=== PATIENT | female | born 2000 ===

== ENCOUNTER 2018-06-12 01:01 | Emergency (ER) | payer SELFPAY ==
[2018-06-12 01:30] VITALS: RESP 16; TEMP 97.7; O2SAT 100
[2018-06-12] MEDS ORDERED: DiphenhydrAMINE 50 mg/ml Inj ONE (02:15)
[2018-06-12] MEDS ORDERED: DiphenhydrAMINE 50 mg/ml Inj IVP STA (04:31)
--- NOTE | 2018-06-12 04:33 | ED PDOC ---
HPI: Allergic Reaction Time Seen by Provider: 06/12/18 02:05 Chief Complaint (Nursing): Allergic Reaction Chief Complaint (Provider): Allergic Reaction History Per: Patient, [employer] (belizean int: [id number]) History/Exam Limitations: no limitations Current Symptoms Are (Timing): Better Additional Complaint(s): Magalis Chaney is a 18 year old female with no past medical history, who presents to the emergency department complaining of numbness to the right arm, body, and face, associated with difficulty breathing, rash and inability to swallow. She states she fell asleep around 11pm and woke up with these symptoms. Patient further states that this episode feels like an allergic reaction she has to seafood, however patient denies eating any prior. PMD: No provider Past Medical History Reviewed: Historical Data, Nursing Documentation, Vital Signs Vital Signs: Last Vital Signs Temp 97.7 F 06/12/18 01:28 Pulse 77 06/12/18 01:28 Resp 16 06/12/18 01:28 BP 122/79 06/12/18 01:28 Pulse Ox 100 06/12/18 01:28 - Medical History PMH: No Chronic Diseases - Surgical History Surgical History: No Surg Hx - Family History Family History: States: Unknown Family Hx - Social History Current smoker - smoking cessation education provided: No Alcohol: None Drugs: Denies - Home Medications Home Medications: Ambulatory Orders Medication Instructions Recorded Epinephrine HCl [Epipen 0.3 mg MR PRN PRN #1 06/12/18 Auto-Injector] predniSONE [Prednisone] 40 mg PO DAILY #8 tab 06/12/18 - Allergies Allergies/Adverse Reactions: Allergies Allergy/AdvReac Type Severity Reaction Status Date / Time shrimp Allergy RASH Verified 06/12/18 01:27 Review of Systems ROS Statement: Except As Marked, All Systems Reviewed And Found Negative Respiratory: Positive for: Other (dyspnea) Neurological: Positive for: Numbness Physical Exam - Reviewed Nursing Documentation Reviewed: Yes Vital Signs Reviewed: Yes - Physical Exam Appears: Positive for: Non-toxic, No Acute Distress Head Exam: Positive for: ATRAUMATIC, NORMOCEPHALIC Skin: Positive for: Normal Color, Warm, Dry Eye Exam: Positive for: Normal appearance ENT: Positive for: Normal ENT Inspection Neck: Positive for: Normal, Painless ROM, Supple Cardiovascular/Chest: Positive for: Regular Rate, Rhythm. Negative for: Murmur Respiratory: Positive for: Normal Breath Sounds. Negative for: Respiratory Distress Gastrointestinal/Abdominal: Positive for: Normal Exam, Soft. Negative for: Tenderness Extremity: Positive for: Normal ROM Neurologic/Psych: Positive for: Alert, Oriented - ECG O2 Sat by Pulse Oximetry: 100 (RA) Pulse Ox Interpretation: Normal Disposition - Clinical Impression Clinical Impression: Allergic reaction - Patient ED Disposition Is Patient to be Admitted: No Counseled Patient/Family Regarding: Studies Performed, Diagnosis, Need For Followup - Disposition Referrals: [facility] [Outside] [facility] [Outside] Disposition: Routine/Home Disposition Time: 06:30 Condition: IMPROVED Additional Instructions: follow up with the clinic in 2 days for reevaluation you need referral for fixer boarding room return to the ED with any worsening or concerning symptoms Prescriptions: Epinephrine HCl [Epipen Auto-Injector] 0.3 mg MR PRN PRN #1 PRN Reason: Anaphylaxis predniSONE [Prednisone] 40 mg PO DAILY #8 tab Instructions: Drug Allergy Forms: [employer] (Amharic), [employer] (Sami) Print Language: CITIZ[place] Medical Decision Making Medical Decision Making: Time: 430 Impression: allergic reaction- like Plan: --Benadryl 50 mg IVP --Pepcid 20 mg IVP --Solu-medrol 125 mg IVP 530 am, pt feels better iwth medications. states the symptoms resolved pt stable for dc home. instrucgted on benadryl q6h and follow up [facility]/will need referral from there to fixer boarding room. pt agreaable. vitals stable. o2 sat 100 RA. Scribe Attestation: Documented by Ben Jenkins, acting as a scribe for Albert Hui MD Provider Scribe Attestation: All medical record entries made by the Scribe were at my direction and personally dictated by me. I have reviewed the chart and agree that the record accurately reflects my personal performance of the history, physical exam, medical decision making, and the department course for this patient. I have also personally directed, reviewed, and agree with the discharge instructions and disposition.
[2018-06-12 06:06] VITALS: BP 108/64; PULSE 88
== END 2018-06-12 04:45 | disposition home or self-care (01) ==
LOC: H.ER 01:01
DX: T78.40XA Allergy, unspecified, initial encounter (principal)
CPT/HCPCS: 81025; 96374; 96375; 99284; J1200; J2930

== ENCOUNTER 2018-09-11 10:29 | Emergency (ER) | payer OTHER ==
[2018-09-11 10:38] VITALS: RESP 16; TEMP 98.4; O2SAT 100
[2018-09-11 10:40] VITALS: BMI 26.5
[2018-09-11] MEDS ORDERED: Sodium Chloride 0.9% 1,000 ML IV STA (11:49)
--- NOTE | 2018-09-11 11:50 | ED PDOC ---
HPI: Abdomen Time Seen by Provider: 09/11/18 11:24 Chief Complaint (Nursing): Abdominal Pain Chief Complaint (Provider): Abdominal Pain History Per: Patient History/Exam Limitations: no limitations Onset/Duration Of Symptoms: Days Current Symptoms Are (Timing): Still Present Associated Symptoms: Nausea, Vomiting. denies: Fever, Diarrhea Additional Complaint(s): 18 year old female with no past medical history who is presenting to the ED for evaluation of abdominal pain associated with nausea and vomiting onset yesterday night. Patient states that she has little vaginal bleeding and reports that her last period was 10/01/18. She admits she was once before and denies any other medical complaints at this time but states that she is unsure if she is . PMD: none provided Past Medical History Reviewed: Historical Data, Nursing Documentation, Vital Signs Vital Signs: Last Vital Signs Temp 98.4 F 09/11/18 10:37 Pulse 92 H 09/11/18 10:37 Resp 16 09/11/18 10:37 BP 123/79 09/11/18 10:37 Pulse Ox 100 09/11/18 10:37 - Medical History PMH: No Chronic Diseases - Surgical History Surgical History: No Surg Hx - Family History Family History: States: Unknown Family Hx - Social History Current smoker - smoking cessation education provided: No Alcohol: None Drugs: Denies - Home Medications Home Medications: Ambulatory Orders Medication Instructions Recorded Epinephrine HCl [Epipen 0.3 mg MR PRN PRN #1 06/12/18 Auto-Injector] predniSONE [Prednisone] 40 mg PO DAILY #8 tab 06/12/18 Doxylamine/Pyridoxine HCl (B6) 1 each PO QPM PRN #15 tablet. 09/11/18 [Iveth Florez 10-10 mg Tablet] Pnv No.95/Ferrous Fum/Folic AC 1 each PO DAILY #30 tablet 09/11/18 [ Vitamins Tablet] - Allergies Allergies/Adverse Reactions: Allergies Allergy/AdvReac Type Severity Reaction Status Date / Time shrimp Allergy RASH Verified 06/12/18 01:27 Review of Systems ROS Statement: Except As Marked, All Systems Reviewed And Found Negative Gastrointestinal: Positive for: Nausea, Vomiting, Abdominal Pain Genitourinary Female: Positive for: Vaginal Bleeding Physical Exam - Reviewed Nursing Documentation Reviewed: Yes Vital Signs Reviewed: Yes - Physical Exam Appears: Positive for: Non-toxic, No Acute Distress Head Exam: Positive for: ATRAUMATIC, NORMAL INSPECTION, NORMOCEPHALIC Skin: Positive for: Normal Color, Warm, DRY Eye Exam: Positive for: EOMI, Normal appearance, PERRL Cardiovascular/Chest: Positive for: Regular Rate, Rhythm. Negative for: Murmur Respiratory: Positive for: Normal Breath Sounds. Negative for: Respiratory Distress Gastrointestinal/Abdominal: Positive for: Soft, Tenderness (suprapubic ). Neg ative for: Distended, Guarding, Rebound Back: Positive for: Normal Inspection. Negative for: L CVA Tenderness, R CVA Tenderness, Vertebral Tenderness Extremity: Positive for: Normal ROM. Negative for: Deformity, Swelling Neurological/Psych: Positive for: Awake, Alert, Normal Tone, Oriented. Negative for: Motor/Sensory Deficits - Laboratory Results Result Diagrams: 09/11/18 11:57 09/11/18 11:57 - ECG O2 Sat by Pulse Oximetry: 100 (RA) Pulse Ox Interpretation: Normal Medical Decision Making Medical Decision Making: Time: 11:50 Plan: --ABO/RH Type --Blood Type and Screen --Beta HCG-Quantitative --CBC --CMP --IV Fluids --Reglan 10 mg IVP --Urinalysis --OB Ultrasound Urine test was positive. Accession No. : [id number] Patient Name / ID : WING GASCA / [id number] Exam Date : 09/11/2018 13:15:45 ( Approved ) Study Comment : Sex / Age : F / 18Y Creator : Lilibeth Crabtree Dictator : Lilibeth Crabtree Reel Man : Dinkey Motor Operator : Lilibeth Crabtree Approver2 : Report Date : 09/11/2018 14:07:58 My Comment : Date of service: 09/11/2018 PROCEDURE: HISTORY: Vaginal spotting. LMP 07/29/2018. Beta HCG level 1116.60 COMPARISON: None TECHNIQUE: Transabdominal and transvaginal scanning performed. FINDINGS: Uterus is anteverted measuring 8.2 x 3.1 x 4.7 cm. No intrauterine gestations noted. No uterine mass seen. George trim measures 5.4 cm the fundus. No intrauterine fluid seen. Cervix is closed. Right ovary measures 3.1 x 1.7 x 2.4 cm. Left ovary measures 2.5 x 1.9 x 2.7 cm. Multiple bilateral follicles only a few mm in size are noted. Flow to each ovary is normal. IMPRESSION: No intrauterine gestational sac seen. No intrauterine fluid collections. Endocervical canal closed. Clinical correlation and serial follow-up beta HCG levels recommended. At this time no intrauterine gestation of the clinical dates of 6 weeks 2 days suggested. An earlier intrauterine gestation cannot be excluded. Using degreaser ([employer] #[id number]), findings discussed in detail with patient and plan to return to ED in 48 hours for repeat beta hCG and possible ultrasound. Questions answered, expressed verbal understanding. Scribe Attestation: Documented by Christi Hendricks, acting as a scribe for Shantal Fish MD. Provider Scribe Attestation: All medical record entries made by the Scribe were at my direction and p ersonally dictated by me. I have reviewed the chart and agree that the record accurately reflects my personal performance of the history, physical exam, medical decision making, and the department course for this patient. I have also personally directed, reviewed, and agree with the discharge instructions and disposition. Disposition - Clinical Impression Clinical Impression: Abdominal pain during , Threatened - Disposition [facility] Disposition: Routine/Home Disposition Time: 14:18 Condition: STABLE Additional Instructions: REGRESE A ED EN 48 HORAS PARA REPETIR BETA HCG Y POSIBLE ULTRASONIDO. Prescriptions: Doxylamine/Pyridoxine HCl (B6) [Iveth Florez 10-10 mg Tablet] 1 each PO QPM PRN #15 tablet. PRN Reason: Nausea/Vomiting Pnv No.95/Ferrous Fum/Folic AC [ Vitamins Tablet] 1 each PO DAILY #30 tablet Instructions: Threatened Miscarriage, Acute Abdomen (Belly Pain) Forms: [employer] (Polish) Print Language: NORTHERN IRISH
[2018-09-11 12:32] LABS: SQUAMOUS EPITHIAL 2 /hpf (0-5); URINE BACTERIA RARE (<OCC); URINE BILIRUBIN NEGATIVE (NEGATIVE); URINE BLOOD MODERATE (NEGATIVE); URINE CLARITY CLEAR (Clear); URINE COLOR STRAW (YELLOW); URINE GLUCOSE (UA) NEG (NEGATIVE); URINE LEUKOCYTE ESTERASE MOD Leu/uL (Negative); URINE PROTEIN NEGATIVE (NEGATIVE); URINE UROBILINOGEN 0.2-1.0 mg/dL (0.2-1.0)
[2018-09-11 12:35] LABS: BASO # 0.1 K/uL (0.0-0.2); BASO % 0.8 % (0.0-2.0); EOS # 0.1 K/uL (0.0-0.7); EOS % 0.6 % (0.0-4.0); HEMOGLOBIN 13.1 g/dL (12.0-16.0); LYMPH # 2.5 K/uL (1.0-4.3); MEAN CELL VOLUME 81.9 fl (81.0-99.0); MEAN CORPUSCULAR HEMOGLOBIN 26.7 pg (27.0-31.0); MEAN CORPUSCULAR HGB CONC 32.6 g/dL (33.0-37.0); MEAN PLATELET VOLUME 7.7 fl (7.2-11.7); MONO # 0.5 K/uL (0.0-0.8); MONO % 5.3 % (0.0-10.0); NEUT # 6.3 K/uL (1.8-7.0); NEUT % 67.3 % (50.0-75.0); RBC 4.91 Mil/uL (3.80-5.20); RED CELL DISTRIBUTION WIDTH 14.1 % (11.5-14.5); WHITE BLOOD COUNT 9.4 K/uL (4.8-10.8)
[2018-09-11 12:38] LABS: ALB/GLOB RATIO 1.2 (1.0-2.1); ALBUMIN 4.5 g/dL (3.5-5.0); ALT/SGPT 27 U/L (9-52); AST/SGOT 25 U/L (14-36); BLOOD UREA NITROGEN 7 mg/dl (7-17); CALCIUM 9.7 mg/dL (8.4-10.2); GFR NON-AFRICAN AMERICAN > 60
--- NOTE | 2018-09-11 14:11 | US ---
Date of service: 09/11/2018 PROCEDURE: HISTORY: Vaginal spotting. LMP 07/29/2018. Beta HCG level 1116.60 COMPARISON: None TECHNIQUE: Transabdominal and transvaginal scanning performed. FINDINGS: Uterus is anteverted measuring 8.2 x 3.1 x 4.7 cm. No intrauterine gestations noted. No uterine mass seen. George trim measures 5.4 cm the fundus. No intrauterine fluid seen. Cervix is closed. Right ovary measures 3.1 x 1.7 x 2.4 cm. Left ovary measures 2.5 x 1.9 x 2.7 cm. Multiple bilateral follicles only a few mm in size are noted. Flow to each ovary is normal. IMPRESSION: No intrauterine gestational sac seen. No intrauterine fluid collections. Endocervical canal closed. Clinical correlation and serial follow-up beta HCG levels recommended. At this time no intrauterine gestation of the clinical dates of 6 weeks 2 days suggested. An earlier intrauterine gestation cannot be excluded.
[2018-09-11 16:30] VITALS: BP 121/76; PULSE 88
== END 2018-09-11 15:07 | disposition home or self-care (01) ==
LOC: H.ER 10:29
DX: O20.0 Threatened abortion (principal)
CPT/HCPCS: 76815; 76817; 80053; 81003; 81025; 84702; 85025; 86850; 86900; 96374; 99284; J2765; J7030

== ENCOUNTER 2018-09-13 06:51 | Emergency (ER) | payer OTHER ==
[2018-09-13 07:00] VITALS: BMI 25.1
[2018-09-13 07:01] VITALS: TEMP 98.1
--- NOTE | 2018-09-13 07:51 | ED PDOC ---
HPI: General Adult Time Seen by Provider: 09/13/18 07:19 Chief Complaint (Provider): Vaginal Bleeding History Per: Patient History/Exam Limitations: no limitations Onset/Duration Of Symptoms: Days Current Symptoms Are (Timing): Still Present Additional Complaint(s): 18 year old female with no past medical history who is presenting to the ED for evaluation of constant vaginal bleeding associated with lower abdominal pain ongoing for a few days. Patient states that she was here 2 days ago for the same complaint and was told that she was . She reports that she also had an ultrasound done and was told to come back to the ED. Patient admits that the pain and bleeding has not stopped and states that she had to change her pad 7 times yesterday. She reports that her last period was at the end of August and denies passing any blood clots. Patient states that she was taking Tylenol for pain management with minimal relief. Of note, patient is . PMD: none provided Past Medical History Reviewed: Historical Data, Nursing Documentation, Vital Signs Vital Signs: Last Vital Signs Temp 98.1 F 09/13/18 07:00 Pulse 101 H 09/13/18 07:00 Resp 20 09/13/18 07:00 BP 117/71 09/13/18 07:00 Pulse Ox 100 09/13/18 07:00 - Medical History PMH: No Chronic Diseases - Surgical History Surgical History: No Surg Hx - Family History Family History: States: Unknown Family Hx - Social History Current smoker - smoking cessation education provided: No Alcohol: None Drugs: Denies - Home Medications Home Medications: Ambulatory Orders Medication Instructions Recorded Pnv No.95/Ferrous Fum/Folic AC 1 each PO DAILY #30 tablet 09/11/18 [ Vitamins Tablet] - Allergies Allergies/Adverse Reactions: Allergies Allergy/AdvReac Type Severity Reaction Status Date / Time shrimp Allergy RASH Verified 06/12/18 01:27 Review of Systems ROS Statement: Except As Marked, All Systems Reviewed And Found Negative Gastrointestinal: Positive for: Abdominal Pain Genitourinary Female: Positive for: Vaginal Bleeding Physical Exam - Reviewed Nursing Documentation Reviewed: Yes Vital Signs Reviewed: Yes - Physical Exam Appears: Positive for: Non-toxic, No Acute Distress Head Exam: Positive for: ATRAUMATIC, NORMAL INSPECTION, NORMOCEPHALIC Skin: Positive for: Normal Color, Warm, Dry Eye Exam: Positive for: EOMI, Normal appearance, PERRL Neck: Positive for: Normal, Painless ROM, Supple Cardiovascular/Chest: Positive for: Regular Rate, Rhythm. Negative for: Murmur Respiratory: Positive for: Normal Breath Sounds. Negative for: Respiratory Distress Gastrointestinal/Abdominal: Positive for: Soft, Tenderness (tenderness to palpation of suprapubic region ). Negative for: Mass, Distended, Guarding, Rebound Back: Positive for: Normal Inspection. Negative for: L CVA Tenderness, R CVA Tenderness, Vertebral Tenderness Extremity: Positive for: Normal ROM. Negative for: Deformity, Swelling Neurological/Psych: Positive for: Awake, Alert, Normal Tone, Oriented. Negative for: Motor/Sensory Deficits - Laboratory Results Result Diagrams: 09/13/18 07:34 09/13/18 07:34 - ECG O2 Sat by Pulse Oximetry: 100 (RA) Pulse Ox Interpretation: Normal - Progress Re-evaluation Time: 14:39 Condition: Re-examined, Improved Medical Decision Making Medical Decision Making: Time: 7:31 Impression: vaginal bleeding and lower abdominal pain in setting of possible 1st trimester Differentials: Threatened , completed spontaneous , ectopic or extra-uterine , ovarian cyst, uterine fibroids, UTI Plan: --BMP --Beta-HCG, Quantitative --ED Urine --ED Urine Dipstick --CBC --Urinalysis --OB Transvaginal Ultrasound 7:42 Patient had a positive urine test. According to last visit on 09/11, patient has a blood type of B+. 8:48 OB transvaginal US FINDINGS: UTERUS: Measures 6.0 x 3.2 cm. Anteverted normal in size and appearance. No fibroid or other mass lesion seen. ENDOMETRIUM: Measures 9.0 mm in diameter. Gestational sac: Not visualized Yolk sac: Not visualized pole: Not visualized Heart motion: None detected No evidence of intrauterine gestation however the possibility of an ectopic cannot be excluded therefore follow-up serial serum beta HCG and serial ultrasound recommended. There may be proteinaceous within the endometrial canal CERVIX: No cervical abnormality identified. RIGHT OVARY: Measures 3.8 x 3.2 x 2.2 cm. No solid mass. Normal flow. LEFT OVARY: Measures 2.9 x 2.8 x 2.6 cm. No solid mass. Normal flow. FREE FLUID: No significant free fluid noted. OTHER FINDINGS: None. IMPRESSION: No evidence of intrauterine gestation.. Note that there may be proteinaceous fluid within the endometrial canal. Note however that the possibility of an ectopic cannot be excluded on this exam therefore follow-up serial serum beta HCG and serial ultrasound recommended Time: 1400 --Case discussed with Dr. Irene, WORK FORCE ADVISOR fellow, who will see patient in ED with attending Dr. Collins. Patient is feeling better and pain subsided. Scribe Attestation: Documented by Christi Hendricks, acting as a scribe for Yves Santos MD. Provider Scribe Attestation: All medical record entries made by the Scribe were at my direction and personally dictated by me. I have reviewed the chart and agree that the record accurately reflects my personal performance of the history, physical exam, medical decision making, and the department course for this patient. I have also personally directed, reviewed, and agree with the discharge instructions and disposition. Disposition - Clinical Impression Clinical Impression: Abdominal pain during , Threatened - Patient ED Disposition Is Patient to be Admitted: No Doctor Will See Patient In The: Office Counseled Patient/Family Regarding: Studies Performed, Diagnosis, Need For Followup - Disposition [facility] Disposition: Routine/Home Disposition Time: 14:39 Condition: GOOD Additional Instructions: ELO DIMAS, thank you for letting us take care of you today. Your provider was Yves Santos MD and you were treated for VAGINAL BLEEDING. The emergency medical care you received today was directed at your acute symptoms. If you were prescribed any medication, please fill it and take as directed. It may take several days for your symptoms to resolve. Return to the Emergency Department if your symptoms worsen, do not improve, or if you have any other problems. Please contact your doctor or call one of the physicians/clinics you have been referred to that are listed on the Patient Visit Information form that is included in your discharge packet. Bring any paperwork you were given at discharge with you along with any medications you are taking to your follow up visit. Our treatment cannot replace ongoing medical care by a primary care provider outside of the emergency department. Thank you for allowing the [facility] team to be part of your care today. If you had an X-Ray or CT scan: A Radiologist will review the ED reading if any change in treatment is needed we will contact you. Instructions: Threatened Miscarriage Forms: [employer] (Tristanian) Print Language: CROATIAN
[2018-09-13 08:06] LABS: BASO % 0.5 % (0.0-2.0); EOS # 0.2 K/uL (0.0-0.7); EOS % 2.4 % (0.0-4.0); LYMPH # 2.3 K/uL (1.0-4.3); LYMPH % 30.8 % (20.0-40.0); MEAN CELL VOLUME 81.7 fl (81.0-99.0); MEAN CORPUSCULAR HEMOGLOBIN 26.3 pg (27.0-31.0); MEAN CORPUSCULAR HGB CONC 32.2 g/dL (33.0-37.0); MEAN PLATELET VOLUME 7.6 fl (7.2-11.7); MONO # 0.4 K/uL (0.0-0.8); MONO % 6.1 % (0.0-10.0); NEUT # 4.4 K/uL (1.8-7.0); NEUT % 60.2 % (50.0-75.0); RBC 5.34 Mil/uL (3.80-5.20); RED CELL DISTRIBUTION WIDTH 14.1 % (11.5-14.5); WHITE BLOOD COUNT 7.3 K/uL (4.8-10.8)
[2018-09-13 08:16] LABS: BLOOD UREA NITROGEN 8 mg/dl (7-17); CALCIUM 9.7 mg/dL (8.4-10.2); GFR NON-AFRICAN AMERICAN > 60
[2018-09-13 08:19] LABS: SQUAMOUS EPITHIAL 17 /hpf (0-5); URINE BACTERIA OCC (<OCC); URINE BILIRUBIN NEGATIVE (NEGATIVE); URINE BLOOD LARGE (NEGATIVE); URINE CLARITY CLOUDY (Clear); URINE COLOR YELLOW (YELLOW); URINE GLUCOSE (UA) NEG (NEGATIVE); URINE LEUKOCYTE ESTERASE MOD Leu/uL (Negative); URINE PROTEIN 100 mg/dL (NEGATIVE); URINE UROBILINOGEN 0.2-1.0 mg/dL (0.2-1.0)
--- NOTE | 2018-09-13 12:39 | US ---
Date of service: 09/13/2018 HISTORY: Lower abdominal pain vag bleeding COMPARISON: Comparison made with prior study 09/11/2018. TECHNIQUE: Transvaginal sonographic evaluation of the pelvis performed. FINDINGS: UTERUS: Measures 6.0 x 3.2 cm. Anteverted normal in size and appearance. No fibroid or other mass lesion seen. ENDOMETRIUM: Measures 9.0 mm in diameter. Gestational sac: Not visualized Yolk sac: Not visualized pole: Not visualized Heart motion: None detected No evidence of intrauterine gestation however the possibility of an ectopic cannot be excluded therefore follow-up serial serum beta HCG and serial ultrasound recommended. There may be proteinaceous within the endometrial canal CERVIX: No cervical abnormality identified. RIGHT OVARY: Measures 3.8 x 3.2 x 2.2 cm. No solid mass. Normal flow. LEFT OVARY: Measures 2.9 x 2.8 x 2.6 cm. No solid mass. Normal flow. FREE FLUID: No significant free fluid noted. OTHER FINDINGS: None. IMPRESSION: No evidence of intrauterine gestation.. Note that there may be proteinaceous fluid within the endometrial canal. Note however that the possibility of an ectopic cannot be excluded on this exam therefore follow-up serial serum beta HCG and serial ultrasound recommended
[2018-09-13 14:08] VITALS: BP 120/81; PULSE 109; RESP 16
[2018-09-13 14:40] VITALS: O2SAT 100
--- NOTE | 2018-09-13 17:49 | CP.PCM.CON ---
History of Present Illness - History of Present Illness History of Present Illness: Magalis is a 18 year old at approximately 6 weeks via LMP who presents to the ED for the second time in 48 hours for vaginal bleeding and abdominal cramping. She was seen Sunday and had an abdominal US, transvaginal US and labwork which showed no IUP seen in the uterus, no WBC, an unremarkable abdominal US and a quantitative HCG of 1,000. Since then she has continued to have vaginal bleeding and cramping equivalent to her usual menstrual cramps. Today her repeat HCG was 500 and her US again showed no IUP and unremarkable adnexa. Review of Systems - Respiratory Respiratory: absent: Cough, Dyspnea, Dyspnea on Exertion - Gastrointestinal Gastrointestinal: Abdominal Pain, Cramping, Nausea. absent: Change in Bowel Habits, Diarrhea, Dyspepsia - Genitourinary Genitourinary: absent: Change in Urinary Stream, Difficulty Urinating, Flank Pain, Urinary Frequency - Menstruation Menstruation: Normal Menses - Integumentary Integumentary: As Per HPI Past Patient History - Infectious Disease Hx of Infectious Diseases: None - Past Social History Alcohol: None Drugs: Denies - PSYCHIATRIC Hx Substance Use: No - SURGICAL HISTORY Hx Surgeries: No - ANESTHESIA Hx Anesthesia: No Meds Allergies/Adverse Reactions: Allergies Allergy/AdvReac Type Severity Reaction Status Date / Time shrimp Allergy RASH Verified 06/12/18 01:27 Physical Exam - Head Exam Head Exam: ATRAUMATIC - Eye Exam Eye Exam: Normal appearance - ENT Exam ENT Exam: Mucous Membranes Moist - Neck Exam Neck exam: Positive for: Normal Inspection - Respiratory Exam Respiratory Exam: NORMAL BREATHING PATTERN - Cardiovascular Exam Cardiovascular Exam: REGULAR RHYTHM - GI/Abdominal Exam GI & Abdominal Exam: Soft. absent: Firm, Guarding, Rebound, Rigid, Tenderness Results - Vital Signs Recent Vital Signs: Last Vital Signs Temp 98.1 F 09/13/18 07:00 Pulse 109 H 09/13/18 14:08 Resp 16 09/13/18 14:08 BP 120/81 09/13/18 14:08 Pulse Ox 100 09/13/18 14:39 - Labs Result Diagrams: 09/13/18 07:34 09/13/18 07:34 Labs: Laboratory Results - last 24 hr 09/13/18 09/13/18 09/13/18 07:24 07:34 07:34 WBC 7.3 RBC 5.34 H Hgb 14.0 Hct 43.6 MCV 81.7 MCH 26.3 L MCHC 32.2 L RDW 14.1 Plt Count 367 MPV 7.6 Neut % (Auto) 60.2 Lymph % (Auto) 30.8 [place] % (Auto) 6.1 Eos % (Auto) 2.4 Baso % (Auto) 0.5 Neut # (Auto) 4.4 Lymph # (Auto) 2.3 [place] # (Auto) 0.4 Eos # (Auto) 0.2 Baso # (Auto) 0.0 Sodium 139 Potassium 3.8 Chloride 103 Carbon Dioxide 25 Anion Gap 15 BUN 8 Creatinine 0.6 L Est GFR ( Amer) > 60 Est GFR (Non-Af Amer) > 60 Random Glucose 96 Calcium 9.7 Beta HCG, Quant 469.88 Urine Color Yellow Urine Clarity Cloudy Urine pH 6.0 Ur Specific [place] 1.023 Urine Protein 100 Urine Glucose (UA) Neg Urine Ketones Negative Urine Blood Large Urine Nitrate Negative Urine Bilirubin Negative Urine Urobilinogen 0.2-1.0 Ur Leukocyte Esterase Mod Urine RBC (Auto) 2086 H Urine Microscopic WBC 482 H Ur Squamous Epith Cells 17 H Urine Bacteria Occ H Urine Yeast (Budding) Occ H Assessment & Plan (1) Complete Assessment and Plan: 18 year old at 6 wks by LMP who presents with vaginal bleeding and cramping with lab work and US consistent with complete . Her decreasing hCG and unremarkable transvaginal US is reassuring that this is not an early ectopic. Her WBC was normal with stable vitals and no signs of acute intraabdominal process or infection. This is either an early IUP loss or possible an anembryonic that has spontaneously expelled. This was explained to the patient in detail. She was not trying to get and is interested in co ntraception at this time. Recommended she f/u with the [facility] to have a repeat hCG and possible US and to discuss contraception options. All questions were answered. Status: Acute
== END 2018-09-13 15:24 | disposition home or self-care (01) ==
LOC: H.ER 06:51
DX: O03.9 Complete or unspecified spontaneous abortion without complication (principal); O26.891 Other specified pregnancy related conditions, first trimester; Z3A.01 Less than 8 weeks gestation of pregnancy